=== PATIENT | male | born 1975 | race African-American/Black ===

== ENCOUNTER 2022-12-17 14:42 | Inpatient (IN) | payer OTHER, SELFPAY ==
[2022-12-17 15:00] VITALS: BP 137/96; PULSE 66; RESP 18; TEMP 36.5; O2SAT 97
[2022-12-17 16:40] VITALS: BMI 21.0
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
[2022-12-17 20:15] VITALS: BP 144/81; PULSE 64; RESP 16; TEMP 36.4; O2SAT 97
[2022-12-18 08:03] VITALS: BP 146/95; PULSE 65; RESP 20; TEMP 36.4; O2SAT 97
[2022-12-18 09:02] LABS: Estimated Average Glucose 103 mg/dL; Hemoglobin A1c % 5.2 % (<6.0)
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
[2022-12-18 09:31] LABS: Alanine Aminotransferase 11 U/L (0-40); Albumin Level 4.6 g/dL (3.5-5.0); Alkaline Phosphatase 75 U/L (39-117); Anion Gap 13 (12-20); Aspartate Amino Transferase 14 U/L (5-37); Bilirubin Direct 0.6 mg/dL (0.0-0.5); Bilirubin Total 2.1 mg/dL (0.0-1.0); Blood Urea Nitrogen 11 mg/dL (9-16); Calcium 9.7 mg/dL (8.4-10.2); Carbon Dioxide 24 mmol/L (22-29); Chloride 104 mmol/L (96-108); Cholesterol 166 mg/dL (<200); Creatinine Clr Calc Pharmacy 93.1; Estimated Glomerular Filt Rate > 60; Glucose Fasting 89 mg/dL (60-99); HDL Cholesterol 41 mg/dL (>40); LDL Cholesterol Calculated 108 mg/dL (<100); Potassium 4.1 mmol/L (3.3-5.1); Sodium 137 mmol/L (135-145); Total Protein 7.9 g/dL (6.5-8.0); Triglycerides 85 mg/dL (<150)
[2022-12-18 09:47] LABS: Free T4 (Free Thyroxine) 0.99 ng/dL (0.71-1.85); Thyroid Stimulating Hormone 1.78 uIU/mL (0.32-4.0)
[2022-12-18 09:57] LABS: Folate 9.3 ng/mL (> or = 4.0); Vitamin B12 728 pg/mL (200-900)
[2022-12-18] MEDS: DULoxetine HCl 30 MG CAPSULE.DR PO (12:51)
[2022-12-18] MEDS: Prazosin HCL 1 MG CAPSULE PO (14:43)
[2022-12-18 21:00] VITALS: BP 131/88; PULSE 74; TEMP 36.4; O2SAT 94
[2022-12-18] MEDS: Prazosin HCL 1 MG CAPSULE 2 MG PO (21:16)
[2022-12-18] MEDS: hydrOXYzine HCL 25 MG TABLET PO (21:17)
[2022-12-19 07:00] VITALS: BMI 20.7
[2022-12-19 08:46] VITALS: BP 126/79; PULSE 78; RESP 18; TEMP 36.5; O2SAT 97
[2022-12-19] MEDS: Prazosin HCL 1 MG CAPSULE PO ×2 (08:51→14:27)
[2022-12-19] MEDS: DULoxetine HCl 30 MG CAPSULE.DR PO (08:52)
--- NOTE | 2022-12-19 12:40 | P.PNPSI_ITS ---
Subjective Subjective Date of Service: 12/19/22 Reason For Visit: F41.9, F431 Interim History: states he fell asleep OK, then was serially awakening in the night. he reports 2 nightmares. agreeable to increase prazosin to 3 mg at HS. he also c/o voices and agrees to restart zyprexa, 5 mg QHS, which he has been on in the past and which he says has helped with racing thoughts. per staff, feels like someone is after him. fatigued, sleepy. dep/anx /. eating 50% meals. frequent MNA. occasional VH. slept better last NOC. Mental Status Exam Mental Status Exam Narrative: adequately groomed, dressed in [facility]. cooperative. no PMA/PMR. speech nml rate, amount, loudness, latency. flattened tone. thoughts linear and logical. affect constricted, normo-intense, non-labile. mood anxious and depressed. no SI/SIBI/HI reported. vaguely endorsing AVH. Diagnostics Vital Signs (24Hr): Vital Signs - 24 hr 12/18/22 21:00 12/19/22 08:46 Temperature 97.5 F 97.7 F Pulse Rate 74 78 Respiratory Rate 18 Blood Pressure 131/88 126/79 Pulse Oximetry 94 97 Oxygen Delivery Method Room Air Room Air BMI result Body Mass Index 20.7 Labs 12/18/22 08:40 Labs: Laboratory Results - last 48 hr 12/18/22 12/18/22 12/18/22 08:40 08:40 08:40 Sodium 137 Potassium 4.1 Chloride 104 Carbon Dioxide 24 Anion Gap 13 BUN 11 Creatinine 1.00 Estim Creat Clear Calc 93.1 Estimated GFR > 60 Fasting Glucose 89 Estimat Average Glucose 103 Hemoglobin A1c % 5.2 Calcium 9.7 Total Bilirubin 2.1 H Direct Bilirubin 0.6 H AST 14 ALT 11 Alkaline Phosphatase 75 Total Protein 7.9 Albumin 4.6 Triglycerides 85 Cholesterol 166 LDL Cholesterol, Calc 108 H HDL Cholesterol 41 Vitamin B12 728 Folate 9.3 TSH 1.78 Free T4 0.99 Medications Medications Current Medications Acetaminophen (Acetaminophen 325 Mg Tablet) 650 mg PO Q6H PRN PRN Reason: Headache/Pain Mild Scale (1-3) Al Hydroxide/Mg Hydroxide (Magnesium Hydrox/Alum Hydrox 30 Ml Oral.Susp) 30 ml PO Q6H PRN PRN Reason: Heartburn/Nausea Duloxetine HCl (Duloxetine Hcl 30 Mg Capsule.Dr) 30 mg PO DAILY [facility] Last Admin: 12/19/22 08:52 Dose: 30 mg Hydroxyzine HCl (Hydroxyzine Hcl 25 Mg Tablet) 25 mg PO Q6H PRN PRN Reason: Anxiety Last Admin: 12/18/22 21:17 Dose: 25 mg Magnesium Hydroxide (Milk Of Magnesia 30 Ml Oral.Susp) 30 ml PO DAILY PRN PRN Reason: Constipation Nicotine (Nicotine 21 Mg Patch.Td24) 21 mg TRANSDERMA DAILY [facility] Last Admin: 12/19/22 08:52 Dose: Not Given Nicotine Polacrilex (Nicotine Polacrilex 2 Mg Gum) 4 mg BUCCAL Q2H PRN PRN Reason: Nicotine Cravings Olanzapine (Olanzapine 5 Mg Tablet) 5 mg PO BEDTIME [facility]J Prazosin HCl (Prazosin Hcl 1 Mg Capsule) 1 mg PO BID@0900,1500 [facility]; Protocol Last Admin: 12/19/22 08:51 Dose: 1 mg Prazosin HCl (Prazosin Hcl 1 Mg Capsule) 3 mg PO BEDTIME [facility]; Protocol Trazodone HCl (Trazodone Hcl 50 Mg Tablet) 50 mg PO BEDTIME MRX1 PRN PRN Reason: Insomnia Allergies Allergies Allergy/AdvReac Type Severity Reaction Status Date / Time octopus Allergy Anxiety Verified 12/17/22 16:22 squid Allergy Unknown Verified 12/17/22 16:22 Assessment & Plan Assessment & Plan (1) Major depressive disorder: Status: Acute Code(s): F32.9 - Major depressive disorder, single episode, unspecified (2) PTSD (post-traumatic stress disorder): Status: Acute Code(s): F43.10 - Post-traumatic stress disorder, unspecified Plan 12/18: restart cymbalta 30. titrate to prior effective dose of 60 mg daily as tolerated and indicated. restart prazosin. schedule 1 mg daily and at 3 pm for BP and anxiety, with 2 mg at HS for insomnia/nightmares/anxiety. 12/19: increase HS prazosin to 3 mg. start zyprexa 5 mg QHS for sleep/reported AVH/anxiety. planning to discharge to respite in the [facility] once stabilized. Reason for continued inpatient stay Substantial Risk for: harm to self, inability to function and rapid decom pensation Time Spent With Patient Time: Total time managing care of this patient today __25__ minutes.
[2022-12-19 20:15] VITALS: BP 136/92; PULSE 64; RESP 18; TEMP 36.6; O2SAT 98
[2022-12-19] MEDS: Prazosin HCL 1 MG CAPSULE 3 MG PO (21:02)
[2022-12-19] MEDS: OLANZapine 5 MG TABLET PO (21:03)
[2022-12-19] MEDS: Acetaminophen 325 MG TABLET 650 MG PO (21:10)
[2022-12-20 08:20] VITALS: BP 163/98; PULSE 64; RESP 18; TEMP 36.8; O2SAT 96
[2022-12-20] MEDS: Prazosin HCL 1 MG CAPSULE PO ×2 (08:51→14:25)
[2022-12-20] MEDS: DULoxetine HCl 30 MG CAPSULE.DR PO (08:51)
--- NOTE | 2022-12-20 12:49 | P.PNPSI_ITS ---
Subjective Subjective Date of Service: 12/20/22 Reason For Visit: F41.9, F431 Interim History: no change in presentation. c/o feeling jittery and anxious, fearful of others. encouraged pt to come out of his room and socialize and go to groups in order to challenge his fears. c/o frequent MNA with even more nightmares last night than the night before. agrees to continue prazosin titration. per staff, pleasant. high anx/dep. refusing meals. resting. 50-50 regarding his saf ety. Mental Status Exam Mental Status Exam Narrative: adequately groomed, dressed in [facility]. cooperative. no PMA/PMR. speech nml rate, amount, loudness, latency. flattened tone. thoughts linear and logical. affect constricted, normo-intense, non-labile. mood anxious and depressed. no SI/SIBI/HI/AVH reported. reported to medical staff services coordinator he is 50-50 regarding safety in the hospital, however. Diagnostics Vital Signs (24Hr): Vital Signs - 24 hr 12/19/22 20:15 12/20/22 08:20 Temperature 97.9 F 98.2 F Pulse Rate 64 64 Respiratory Rate 18 18 Blood Pressure 136/92 H 163/98 H Pulse Oximetry 98 96 Oxygen Delivery Method Room Air Room Air BMI result Body Mass Index 20.7 Labs 12/18/22 08:40 Medications Medications Current Medications Acetaminophen (Acetaminophen 325 Mg Tablet) 650 mg PO Q6H PRN PRN Reason: Headache/Pain Mild Scale (1-3) Last Admin: 12/19/22 21:10 Dose: 650 mg Al Hydroxide/Mg Hydroxide (Magnesium Hydrox/Alum Hydrox 30 Ml Oral.Susp) 30 ml PO Q6H PRN PRN Reason: Heartburn/Nausea Duloxetine HCl (Duloxetine Hcl 30 Mg Capsule.Dr) 30 mg PO DAILY [facility] Last Admin: 12/20/22 08:51 Dose: 30 mg Hydroxyzine HCl (Hydroxyzine Hcl 25 Mg Tablet) 25 mg PO Q6H PRN PRN Reason: Anxiety Last Admin: 12/18/22 21:17 Dose: 25 mg Magnesium Hydroxide (Milk Of Magnesia 30 Ml Oral.Susp) 30 ml PO DAILY PRN PRN Reason: Constipation Nicotine (Nicotine 21 Mg Patch.Td24) 21 mg TRANSDERMA DAILY [facility] Last Admin: 12/20/22 08:51 Dose: Not Given Nicotine Polacrilex (Nicotine Polacrilex 2 Mg Gum) 4 mg BUCCAL Q2H PRN PRN Reason: Nicotine Cravings Olanzapine (Olanzapine 5 Mg Tablet) 5 mg PO BEDTIME [facility] Last Admin: 12/19/22 21:03 Dose: 5 mg Prazosin HCl (Prazosin Hcl 1 Mg Capsule) 1 mg PO BID@0900,1500 [facility]; Protocol Last Admin: 12/20/22 08:51 Dose: 1 mg Prazosin HCl (Prazosin Hcl 1 Mg Capsule) 4 mg PO BEDTIME [facility]; Protocol Stop: 12/20/22 21:01 Prazosin HCl (Prazosin Hcl 5 Mg Capsule) 5 mg PO BEDTIME ONE; Protocol Stop: 12/21/22 21:01 Trazodone HCl (Trazodone Hcl 50 Mg Tablet) 50 mg PO BEDTIME MRX1 PRN PRN Reason: Insomnia Allergies Allergies Allergy/AdvReac Type Severity Reaction Status Date / Time octopus Allergy Anxiety Verified 12/17/22 16:22 squid Allergy Unknown Verified 12/17/22 16:22 Assessment & Plan Assessment & Plan (1) Major depressive disorder: Status: Acute Code(s): F32.9 - Major depressive disorder, single episode, unspecified (2) PTSD (post-traumatic stress disorder): Status: Acute Code(s): F43.10 - Post-traumatic stress disorder, unspecified Plan 12/18: restart cymbalta 30. titrate to prior effective dose of 60 mg daily as tolerated and indicated. restart prazosin. schedule 1 mg daily and at 3 pm for BP and anxiety, with 2 mg at HS for insomnia/nightmares/anxiety. 12/19: increase HS prazosin to 3 mg. start zyprexa 5 mg QHS for sleep/reported AVH/anxiety. planning to discharge to respite in the [facility] once stabilized. 12/20: increase HS prazosin to 4 mg tonight, 5 friday night, and 6 friday night (orders entered). increase further to 7 mg friday night as indicated. monitor BP. continue current mgmt otherwise. referral to respite in [facility] sent. Reason for continued inpatient stay Substantial Risk for: harm to self, inability to function and rapid decompensation Time Spent With Patient Time: Total time managing care of this patient today __25__ minutes.
[2022-12-20] MEDS: hydrOXYzine HCL 25 MG TABLET PO (19:02)
[2022-12-20 21:40] VITALS: BP 134/96; PULSE 72; RESP 18; TEMP 36.2; O2SAT 98
[2022-12-20] MEDS: OLANZapine 5 MG TABLET PO (21:43)
[2022-12-20] MEDS: Prazosin HCL 1 MG CAPSULE 4 MG PO (21:43)
[2022-12-20] MEDS: traZODone HCL 50 MG TABLET PO (21:46)
[2022-12-21 08:00] VITALS: BP 179/83; PULSE 75; RESP 18; TEMP 36.4; O2SAT 98
[2022-12-21] MEDS: DULoxetine HCl 30 MG CAPSULE.DR PO (08:47)
[2022-12-21] MEDS: Prazosin HCL 1 MG CAPSULE PO ×2 (08:48→14:44)
[2022-12-21] MEDS: Nicotine 21 MG PATCH.TD24 TRANSDERMA (08:48)
--- NOTE | 2022-12-21 10:42 | P.PNPSI_ITS ---
Subjective Subjective Date of Service: 12/21/22 Reason For Visit: F41.9, F431 Subjective Notes: Conditional Voluntary Healthcare Proxy: No Guardianship: No Medical Problems Affecting Mental Status: No Interim History: Patient was seen and discussed in rounds today. Records and plans were rev iewed. He continues to be anxious, somewhat paranoid and jittery at times. He is isolative and guarded. He is more social, later in the day. No SI. Eating and sleeping adequately. No complaints or side effects. No changes were made Medication Compliance: Yes Review of Systems Review of Systems Yes all other systems are reviewed and are negative Mental Status Exam Mental Status Exam Narrative: In today's visit he is alert, oriented and pleasant. Normal speech. Moderate eye contact. Affect is constricted. Moderate anxiety present. No cognitive deficits. No SI. No acute signs of psychosis. Judgment is intact. Diagnostics Vital Signs (24Hr): Vital Signs - 24 hr 12/20/22 21:40 12/21/22 08:00 Temperature 97.1 F 97.6 F Pulse Rate 72 75 Respiratory Rate 18 18 Blood Pressure 134/96 H 179/83 H Pulse Oximetry 98 98 Oxygen Delivery Method Room Air Room Air BMI result Body Mass Index 20.7 Labs 12/18/22 08:40 Medications Medications Current Medications Acetaminophen (Acetaminophen 325 Mg Tablet) 650 mg PO Q6H PRN PRN Reason: Headache/Pain Mild Scale (1-3) Last Admin: 12/19/22 21:10 Dose: 650 mg Al Hydroxide/Mg Hydroxide (Magnesium Hydrox/Alum Hydrox 30 Ml Oral.Susp) 30 ml PO Q6H PRN PRN Reason: Heartburn/Nausea Duloxetine HCl (Duloxetine Hcl 30 Mg Capsule.Dr) 30 mg PO DAILY [facility] Last Admin: 12/21/22 08:47 Dose: 30 mg Hydroxyzine HCl (Hydroxyzine Hcl 25 Mg Tablet) 25 mg PO Q6H PRN PRN Reason: Anxiety Last Admin: 12/20/22 19:02 Dose: 25 mg Magnesium Hydroxide (Milk Of Magnesia 30 Ml Oral.Susp) 30 ml PO DAILY PRN PRN Reason: Constipation Nicotine (Nicotine 21 Mg Patch.Td24) 21 mg TRANSDERMA DAILY [facility] Last Admin: 12/21/22 08:48 Dose: 21 mg Nicotine Polacrilex (Nicotine Polacrilex 2 Mg Gum) 4 mg BUCCAL Q2H PRN PRN Reason: Nicotine Cravings Olanzapine (Olanzapine 5 Mg Tablet) 5 mg PO BEDTIME MJ Last Admin: 12/20/22 21:43 Dose: 5 mg Prazosin HCl (Prazosin Hcl 1 Mg Capsule) 1 mg PO BID@0900,1500 MJ; Protocol Last Admin: 12/21/22 08:48 Dose: 1 mg Prazosin HCl (Prazosin Hcl 5 Mg Capsule) 5 mg PO BEDTIME ONE; Protocol Stop: 12/21/22 21:01 Prazosin HCl 5 mg/ Prazosin (HCl 1 mg) 6 mg PO BEDTIME MJ Trazodone HCl (Trazodone Hcl 50 Mg Tablet) 50 mg PO BEDTIME MRX1 PRN PRN Reason: Insomnia Last Admin: 12/20/22 21:46 Dose: 50 mg Allergies Allergies Allergy/AdvReac Type Severity Reaction Status Date / Time octopus Allergy Anxiety Verified 12/17/22 16:22 squid Allergy Unknown Verified 12/17/22 16:22 Assessment & Plan Assessment & Plan (1) Major depressive disorder: Status: Acute Code(s): F32.9 - Major depressive disorder, single episode, unspecified (2) PTSD (post-traumatic stress disorder): Status: Acute Code(s): F43.10 - Post-traumatic stress disorder, unspecified Plan 12/18: restart cymbalta 30. titrate to prior effective dose of 60 mg daily as tolerated and indicated. restart prazosin. schedule 1 mg daily and at 3 pm for BP and anxiety, with 2 mg at HS for insomnia/nightmares/anxiety. 12/19: increase HS prazosin to 3 mg. start zyprexa 5 mg QHS for sleep/reported AVH/anxiety. planning to discharge to respite in the [facility] once stabilized. 12/20: increase HS prazosin to 4 mg tonight, 5 friday night, and 6 friday night (orders entered). increase further to 7 mg friday night as indicated. monitor BP. continue current mgmt otherwise. referral to respite in [place] sent. 12/21: Continue current regimen and plans Reason for continued inpatient stay Substantial Risk for: med/psych decompensation Time Spent With Patient Time: Total time managing care of this patient today ____ minutes.
--- NOTE | 2022-12-21 11:23 | PC.NURSE ---
received phone call from a woman anna Haile who claims to be pt's sister. She reports there was an [employer] Alert issued for the pt because the pt has been missing for several days and asked for the pt to call her so she can pick him up. No release for any family or friends signed so no information was give to the caller. Name and call back telephone # for caller provided to pt.
[2022-12-21 23:00] VITALS: BP 160/95; PULSE 65; RESP 18; TEMP 36.4; O2SAT 97
[2022-12-21] MEDS: OLANZapine 5 MG TABLET PO (23:03)
[2022-12-21] MEDS: traZODone HCL 50 MG TABLET PO (23:03)
[2022-12-21] MEDS: Prazosin HCL 5 MG CAPSULE PO (23:03)
[2022-12-21] MEDS: Lidocaine 4 % Patch ADH..PATCH 1 PATCH TRANSDERMA (23:07)
--- NOTE | 2022-12-22 | ECG_ITS ---
Test Reason : chest pain Blood Pressure : / mmHG Vent. Rate : 065 BPM Atrial Rate : 065 BPM P-R Int : 114 ms QRS Dur : 100 ms QT Int : 426 ms P-R-T Axes : 076 079 046 degrees QTc Int : 443 ms Normal sinus rhythm Moderate voltage criteria for LVH, may be normal variant ( Sokolow-Davidson , [place] product ) Nonspecific T wave abnormality Abnormal ECG No previous ECGs available Referred By: Clay Gonzalez Electronically Signed By:ANKUSH GALLO
[2022-12-22 08:00] VITALS: BP 135/85; PULSE 73; RESP 18; TEMP 36.8; O2SAT 97
[2022-12-22] MEDS: DULoxetine HCl 30 MG CAPSULE.DR PO (08:40)
[2022-12-22] MEDS: Prazosin HCL 1 MG CAPSULE PO ×2 (08:40→14:03)
--- NOTE | 2022-12-22 09:01 | HO.PSYCHPN ---
Subjective Subjective Date of Service: 12/22/22 Reason For Visit: F41.9, F431 Subjective Notes: Conditional Voluntary Healthcare Proxy: No Guardianship: No Medical Problems Affecting Mental Status: No Interim History: Patient was seen and discussed in rounds today. Records and plans were reviewed. He has been visible, social and generally feels better and feels that the medications have been helpful. Attending groups. Eating and sleeping adequately. He does have some auditory hallucinations but they are not disturbing. He was given a lidocaine patch daily which he found quite helpful with some back pain. He is anxious over his disposition. No changes were made today Medication Compliance: Yes Review of Systems Review of Systems Back pain Yes all other systems are reviewed and are negative Mental Status Exam Mental Status Exam Narrative: In today's visit he is alert, oriented and pleasant. Normal speech. Moderate eye contact. Affect is constricted. Moderate anxiety present. No cognitive deficits. No SI. No acute signs of psychosis. Judgment is intact. Diagnostics Vital Signs (24Hr): Vital Signs - 24 hr 12/21/22 23:00 Temperature 97.5 F Pulse Rate 65 Respiratory Rate 18 Blood Pressure 160/95 H Pulse Oximetry 97 Oxygen Delivery Method Room Air BMI result Body Mass Index 20.7 Labs 12/18/22 08:40 Medications Medications Current Medications Acetaminophen (Acetaminophen 325 Mg Tablet) 650 mg PO Q6H PRN PRN Reason: Headache/Pain Mild Scale (1-3) Last Admin: 12/19/22 21:10 Dose: 650 mg Al Hydroxide/Mg Hydroxide (Magnesium Hydrox/Alum Hydrox 30 Ml Oral.Susp) 30 ml PO Q6H PRN PRN Reason: Heartburn/Nausea Duloxetine HCl (Duloxetine Hcl 30 Mg Capsule.) 30 mg PO DAILY MJ Last Admin: 12/22/22 08:40 Dose: 30 mg Hydroxyzine HCl (Hydroxyzine Hcl 25 Mg Tablet) 25 mg PO Q6H PRN PRN Reason: Anxiety Last Admin: 12/20/22 19:02 Dose: 25 mg Lidocaine (Lidocaine 4 % Patch Adh..Patch) 1 patch TRANSDERMA DAILY PRN; Protocol PRN Reason: Pain, Mild (Pain Scale 1-3) Last Admin: 12/21/22 23:07 Dose: 1 patch Magnesium Hydroxide (Milk Of Magnesia 30 Ml Oral.Susp) 30 ml PO DAILY PRN PRN Reason: Constipation Nicotine (Nicotine 21 Mg Patch.Td24) 21 mg TRANSDERMA DAILY [facility] Last Admin: 12/22/22 08:46 Dose: Not Given Nicotine Polacrilex (Nicotine Polacrilex 2 Mg Gum) 4 mg BUCCAL Q2H PRN PRN Reason: Nicotine Cravings Olanzapine (Olanzapine 5 Mg Tablet) 5 mg PO BEDTIME MJ Last Admin: 12/21/22 23:03 Dose: 5 mg Prazosin HCl (Prazosin Hcl 1 Mg Capsule) 1 mg PO BID@0900,1500 MJ; Protocol Last Admin: 12/22/22 08:40 Dose: 1 mg Prazosin HCl 5 mg/ Prazosin (HCl 1 mg) 6 mg PO BEDTIME MJ Trazodone HCl (Trazodone Hcl 50 Mg Tablet) 50 mg PO BEDTIME MRX1 PRN PRN Reason: Insomnia Last Admin: 12/21/22 23:03 Dose: 50 mg Allergies Allergies Allergy/AdvReac Type Severity Reaction Status Date / Time octopus Allergy Anxiety Verified 12/17/22 16:22 squid Allergy Unknown Verified 12/17/22 16:22 Assessment & Plan Assessment & Plan (1) Major depressive disorder: Status: Acute Code(s): F32.9 - Major depressive disorder, single episode, unspecified (2) PTSD (post-traumatic stress disorder): Status: Acute Code(s): F43.10 - Post-traumatic stress disorder, unspecified Plan 12/18: restart cymbalta 30. titrate to prior effective dose of 60 mg daily as tolerated and indicated. restart prazosin. schedule 1 mg daily and at 3 pm for BP and anxiety, with 2 mg at HS for insomnia/nightmares/anxiety. 12/19: increase HS prazosin to 3 mg. start zyprexa 5 mg QHS for sleep/reported AVH/anxiety. planning to discharge to respite in the [facility] once stabilized. 12/20: increase HS prazosin to 4 mg tonight, 5 friday night, and 6 friday night (orders entered). increase further to 7 mg friday night as indicated. monitor BP. continue current mgmt otherwise. referral to respite in [place] sent. 12/21: Continue current regimen and plans 12/22: Continue current plans and regimen Reason for continued inpatient stay Substantial Risk for: rapid decompensation Time Spent With Patient Time: Total time managing care of this patient today ____ minutes.
[2022-12-22 10:00] VITALS: BP 158/96
[2022-12-22] MEDS: hydrOXYzine HCL 25 MG TABLET PO (12:26)
--- NOTE | 2022-12-22 12:49 | PC.NURSE ---
Patient came to this RN after a phone call he had stating that he was very anxious over being told the police were looking for him as a missing persons in [place]. Patient was very concerned, patient signed a release for this RN to notify the [place] [employer] that he was here and safe. Patient reported feeling very relieved after hearing that this phone call had been able to occur and that the [place] Police knew he was here.
--- NOTE | 2022-12-22 18:34 | PC.NURSE ---
Patient signed a release to speak with a woman who showed up wanting to have him discharged to her. Patient spoke with this RN and conditional voluntary status discussed, patient declined to sign a 3 day, when asked what he wanted patient stated, I will just let this play out . Patient was non-committal one way or another regarding the idea of discharge, expressing that, This is all just too much for me to deal with .
[2022-12-22 21:25] VITALS: BP 134/97; PULSE 73; RESP 18; TEMP 36.5; O2SAT 97
[2022-12-22] MEDS: traZODone HCL 50 MG TABLET PO (21:30)
[2022-12-22] MEDS: Prazosin HCL 5 MG, Prazosin HCL 1 MG 6 MG PO (21:30)
[2022-12-22] MEDS: OLANZapine 5 MG TABLET PO (21:30)
[2022-12-22 23:00] VITALS: BP 154/102; PULSE 100; RESP 18; O2SAT 99
[2022-12-22 23:05] VITALS: BP 173/108; PULSE 96; RESP 18; O2SAT 98
--- NOTE | 2022-12-22 23:17 | PC.NURSE ---
Pt came out to Nurses station at approx 2300 c/o chest pain of a 7 . BP on right arm was 154/102, 100 HR, 99% SpO2. Left arm taken right after and was 173/108, HR 96 and 98% SpO2. Pt denies SOB, Diaphoresis, N/V, sore throat or radiating pain. finish production manager Dr. Gonzalez notified and EKG ordered. EKG up at 2318. Will continue to monitor patient.
[2022-12-22 23:30] VITALS: BP 144/95; PULSE 70; RESP 18; O2SAT 95
--- NOTE | 2022-12-22 23:32 | PC.NURSE ---
Pt's EKG has been completed, NSR w/Non specific T wave abnormality. Results sent to percussion teacher Dr. Gonzalez. Pt VS post EKG is measured to be 144/95, HR 70 and SpO2 95%. Pt states pain is now a 4 . Pt states that he has had similar pain in the past from a panic attack. call out operator is ordering troponin levels to be done as well. Pt returned to bed to lie down. Will continue to monitor.
[2022-12-23 01:36] LABS: Troponin-I High Sensitivity < 2.7 ng/L (<3.5-35.0)
[2022-12-23 08:27] VITALS: BP 146/95; PULSE 64; RESP 20; TEMP 36.6; O2SAT 98
[2022-12-23] MEDS: Prazosin HCL 5 MG CAPSULE PO ×2 (08:46→15:02)
[2022-12-23] MEDS: Nicotine 21 MG PATCH.TD24 TRANSDERMA (08:46)
[2022-12-23] MEDS: DULoxetine HCl 30 MG CAPSULE.DR PO (08:47)
--- NOTE | 2022-12-23 10:34 | P.PNPSI_ITS ---
Subjective Subjective Date of Service: 12/23/22 Reason For Visit: F41.9, F431 Subjective Notes: Conditional Voluntary Healthcare Proxy: No Guardianship: No Medical Problems Affecting Mental Status: No Interim History: Patient was seen and discussed in rounds today. Records and plans were rev iewed. He had an episode of chest pain. EKG and troponin were done with no findings. He is denying any chest pain today. He associates it with increase of prazosin and wants to go back to the 5 mg in spite of my trying to explain to him. He continues to feel the prazosin has been very helpful with his nightmares in general. No other changes were made today Medication Compliance: Yes Review of Systems Review of Systems Yes all other systems are reviewed and are negative Mental Status Exam Mental Status Exam Narrative: In today's visit he is alert, oriented and pleasant. Normal speech. Moderate eye contact. Affect is constricted. Moderate anxiety present. No cognitive deficits. No SI. No acute signs of psychosis. Judgment is intact. Diagnostics Vital Signs (24Hr): Vital Signs - 24 hr 12/22/22 23:00 12/22/22 23:05 12/22/22 21:25 Temperature 97.7 F Pulse Rate 100 96 73 Respiratory Rate 18 18 18 Blood Pressure 154/102 H 173/108 H 134/97 H Pulse Oximetry 99 98 97 Oxygen Delivery Method Room Air Room Air Room Air 12/22/22 23:30 12/23/22 08:27 Temperature 97.8 F Pulse Rate 70 64 Respiratory Rate 18 20 Blood Pressure 144/95 H 146/95 H Pulse Oximetry 95 98 Oxygen Delivery Method Room Air Room Air BMI result Body Mass Index 20.7 Labs 12/18/22 08:40 Labs: Laboratory Results - last 48 hr 12/23/22 01:08 Troponin I High Sens < 2.7 Medications Medications Current Medications Acetaminophen (Acetaminophen 325 Mg Tablet) 650 mg PO Q6H PRN PRN Reason: Headache/Pain Mild Scale (1-3) Last Admin: 12/19/22 21:10 Dose: 650 mg Al Hydroxide/Mg Hydroxide (Magnesium Hydrox/Alum Hydrox 30 Ml Oral.Susp) 30 ml PO Q6H PRN PRN Reason: Heartburn/Nausea Duloxetine HCl (Duloxetine Hcl 30 Mg Capsule.) 30 mg PO DAILY MJ Last Admin: 12/23/22 08:47 Dose: 30 mg Hydroxyzine HCl (Hydroxyzine Hcl 25 Mg Tablet) 25 mg PO Q6H PRN PRN Reason: Anxiety Last Admin: 12/22/22 12:26 Dose: 25 mg Lidocaine (Lidocaine 4 % Patch Adh..Patch) 1 patch TRANSDERMA DAILY PRN; Protocol PRN Reason: Pain, Mild (Pain Scale 1-3) Last Admin: 12/21/22 23:07 Dose: 1 patch Magnesium Hydroxide (Milk Of Magnesia 30 Ml Oral.Susp) 30 ml PO DAILY PRN PRN Reason: Constipation Nicotine (Nicotine 21 Mg Patch.Td24) 21 mg TRANSDERMA DAILY MJ Last Admin: 12/23/22 08:46 Dose: 21 mg Nicotine Polacrilex (Nicotine Polacrilex 2 Mg Gum) 4 mg BUCCAL Q2H PRN PRN Reason: Nicotine Cravings Olanzapine (Olanzapine 5 Mg Tablet) 5 mg PO BEDTIME MJ Last Admin: 12/22/22 21:30 Dose: 5 mg Prazosin HCl (Prazosin Hcl 5 Mg Capsule) 5 mg PO BID@0900,1500 MJ; Protocol Last Admin: 12/23/22 08:46 Dose: 5 mg Trazodone HCl (Trazodone Hcl 50 Mg Tablet) 50 mg PO BEDTIME MRX1 PRN PRN Reason: Insomnia Last Admin: 12/22/22 21:30 Dose: 50 mg Allergies Allergies Allergy/AdvReac Type Severity Reaction Status Date / Time octopus Allergy Anxiety Verified 12/17/22 16:22 squid Allergy Unknown Verified 12/17/22 16:22 Assessment & Plan Assessment & Plan (1) Major depressive disorder: Status: Acute Code(s): F32.9 - Major depressive disorder, single episode, unspecified (2) PTSD (post-traumatic stress disorder): Status: Acute Code(s): F43.10 - Post-traumatic stress disorder, unspecified Plan 12/18: restart cymbalta 30. titrate to prior effective dose of 60 mg daily as tolerated and indicated. restart prazosin. schedule 1 mg daily and at 3 pm for BP and anxiety, with 2 mg at HS for insomnia/nightmares/anxiety. 12/19: increase HS prazosin to 3 mg. start zyprexa 5 mg QHS for sleep/reported AVH/anxiety. planning to discharge to respite in the [facility] once stabilized. 12/20: increase HS prazosin to 4 mg tonight, 5 friday night, and 6 friday night (orders entered). increase further to 7 mg friday night as indicated. monitor BP. continue current mgmt otherwise. referral to respite in [facility]. 12/21: Continue current regimen and plans 12/22: Continue current plans and regimen 12/23: Continue current plans and regimen. Decrease prazosin to 5 mg Patient educated on: medication risk/benefits Reason for continued inpatient stay Substantial Risk for: rapid decompensation Time Spent With Patient Time: Total time managing care of this patient today ____ minutes.
--- NOTE | 2022-12-23 10:34 | P.PNPSP_ITS ---
Subjective Subjective Reason For Visit: F41.9, F431 Diagnostics Vital Signs (24Hr): Vital Signs - 24 hr 12/22/22 23:00 12/22/22 23:05 12/22/22 21:25 Temperature 97.7 F Pulse Rate 100 96 73 Respiratory Rate 18 18 18 Blood Pressure 154/102 H 173/108 H 134/97 H Pulse Oximetry 99 98 97 Oxygen Delivery Method Room Air Room Air Room Air 12/22/22 23:30 12/23/22 08:27 Temperature 97.8 F Pulse Rate 70 64 Respiratory Rate 18 20 Blood Pressure 144/95 H 146/95 H Pulse Oximetry 95 98 Oxygen Delivery Method Room Air Room Air BMI result Body Mass Index 20.7 Labs 12/18/22 08:40 Labs: Laboratory Results - last 48 hr 12/23/22 01:08 Troponin I High Sens < 2.7 Assessment & Plan Certification I certify that partial hospital treatment is medically necessary due to the sy mptoms and problems resulting from the patient's mental illness and the failure to treat the patient at the partial hospital level of care would likely result in the patient requiring inpatient psychiatric care which could not be prevented at a less intensive level of care. Total time managing care of this patient today ____ minutes. Discharge Plan Discharge Referrals: Fariha Middleton TECHNICAL OPERATIONS VICE PRESIDENT [Primary Care Provider] - 1 Week Discharge Medications: No Action No Known Home Meds
[2022-12-23] MEDS: OLANZapine 5 MG TABLET PO (22:00)
[2022-12-23] MEDS: traZODone HCL 50 MG TABLET PO (22:00)
[2022-12-23 22:01] VITALS: BP 163/86; PULSE 86; TEMP 36.7; O2SAT 98
[2022-12-24] MEDS: Nicotine 21 MG PATCH.TD24 TRANSDERMA (08:29)
[2022-12-24] MEDS: Prazosin HCL 5 MG CAPSULE PO (08:29)
[2022-12-24] MEDS: DULoxetine HCl 30 MG CAPSULE.DR PO (08:30)
[2022-12-24 08:49] VITALS: BP 142/96; PULSE 61; RESP 20; TEMP 36.7; O2SAT 97
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
== END 2022-12-24 11:05 | disposition home or self-care (01) | DRG 751 ==
PROVIDERS: Psychiatry & Neurology Psychiatry; Admitting Provider Psychiatry & Neurology Psychiatry; PCP Registered Nurse; Visit Provider Psychiatry & Neurology Psychiatry
DX: F33.1 Major depressive disorder, recurrent, moderate (principal); R45.851 Suicidal ideations; F17.210 Nicotine dependence, cigarettes, uncomplicated; G89.21 Chronic pain due to trauma; Z71.6 Tobacco abuse counseling; F43.12 Post-traumatic stress disorder, chronic; Z79.899 Other long term (current) drug therapy
CPT/HCPCS: 36415; 80053; 80061; 80076; 82607; 82746; 83036; 84439; 84443; 84484; 93005

== ENCOUNTER → 2022-12-17 14:42 | Outpatient (BNV) | payer MEDICAID, SELFPAY | PROVIDERS: Admitting Provider Psychiatry & Neurology Psychiatry; PCP Registered Nurse; Visit Provider Physician Assistant | DX: Z02.2 Encounter for examination for admission to residential institution (principal) | CPT/HCPCS: 99429 ==

== ENCOUNTER → 2022-12-17 14:42 | Outpatient (BNV) | payer OTHER, SELFPAY | PROVIDERS: Admitting Provider Psychiatry & Neurology Psychiatry; PCP Registered Nurse; Visit Provider Psychiatry & Neurology Psychiatry | DX: F33.2 Major depressive disorder, recurrent severe without psychotic features (principal); F43.11 Post-traumatic stress disorder, acute | CPT/HCPCS: 90792; 99231; 99232; 99239 ==